=== PATIENT | male | born 1985 | race Two or more races ===

== ENCOUNTER 2021-04-24 18:08 | Emergency (ER) | payer OTHER ==
[~2021-04-24] VITALS: Ht 177.8 cm; Wt 79.4 kg
[2021-04-24] MEDS ORDERED: DICLOFENAC SODI75 MG PO (18:17)
[2021-04-24] MEDS ORDERED: NORFLEX100MG PO (18:17)
== END 2021-04-24 18:24 | disposition home or self-care (01) ==
LOC: ER 18:08
DX: M54.50 Low back pain, unspecified (principal)